=== PATIENT | male | born 1965 | race African-American/Black ===

== ENCOUNTER 2023-06-11 15:41 | Inpatient (IN) | payer OTHER ==
[2023-06-11 16:49] VITALS: BMI 29.1
[2023-06-11] MEDS ORDERED: MAG HYDROX/AL HYDROX/SIMETH 30 ML UNIT-DOSE CUP PO PRN (18:21)
[2023-06-11] MEDS ORDERED: BENZONATATE 200 MG CAPSULE PO PRN (18:21)
[2023-06-11] MEDS ORDERED: BISMUTH SUBSALICYLATE 524 MG/30 ML PO PRN (18:21)
[2023-06-11] MEDS ORDERED: IBUPROFEN 400 MG TABLET (FP) PO PRN (18:21)
[2023-06-11] MEDS ORDERED: ONDANSETRON *ODT* 4 MG TABLET SL PRN (18:21)
[2023-06-11] MEDS ORDERED: IBUPROFEN 600 MG TABLET (FP) PO PRN (18:21)
[2023-06-11] MEDS ORDERED: BENZOCAINE/MENTHOL (CHLORASEPTIC ) LOZENGE MM PRN (18:21)
[2023-06-11] MEDS ORDERED: LOPERAMIDE HCL 2 MG CAPSULE PO PRN (18:21)
[2023-06-11] MEDS ORDERED: POLYETHYLENE GLYCOL (HEALTHYLAX) 3350 17 GM PACKET PO PRN (18:21)
[2023-06-11] MEDS ORDERED: guaiFENesin 600 MG TABLET.ER (FP) PO PRN (18:21)
[2023-06-11] MEDS ORDERED: NALOXONE HCL 0.4 MG/ML VIAL IM PRN (18:21)
[2023-06-11] MEDS ORDERED: NALOXONE HCL (KLOXXADO) 8 MG SPRAY NS PRN (18:21)
[2023-06-11] MEDS ORDERED: DICYCLOMINE HCL 10 MG CAPSULE PO PRN (18:21)
[2023-06-11] MEDS ORDERED: ACETAMINOPHEN 325 MG TABLET (FP) PO PRN (18:21)
[2023-06-11] MEDS ORDERED: MAGNESIUM HYDROX 2400MG/30ML ORAL SUSPENSION 30 ML CUP PO PRN (18:21)
[2023-06-11] MEDS: THIAMINE HCL 100 MG TABLET (FP) PO SCH (22:31)
[2023-06-11] MEDS: METHOCARBAMOL 500 MG TABLET PO PRN (22:31)
[2023-06-11] MEDS: MELATONIN 5 MG TABLETS PO SCH (22:31)
[2023-06-11] MEDS: hydrOXYzine PAMOATE 25 MG CAPSULE (FP) PO PRN (22:31)
[2023-06-12] MEDS: NICOTINE 21 MG/24 HOURS TOPICAL PATCH TD SCH (09:35)
[2023-06-12] MEDS: hydrOXYzine PAMOATE 25 MG CAPSULE (FP) PO PRN (09:35)
[2023-06-12] MEDS: METHOCARBAMOL 500 MG TABLET PO PRN (09:35)
[2023-06-12] MEDS: PRENATAL VITAMINS W/ FOLIC ACID TABLET (FP) PO SCH (09:35)
[2023-06-12] MEDS ORDERED: NICOTINE 14 MG/24 HOURS TOPICAL PATCH TD SCH (10:00)
[2023-06-12] MEDS ORDERED: diazePAM 5 MG TABLET PO PRN (10:24)
[2023-06-12] MEDS ORDERED: cloNIDine HCL 0.1 MG TABLET PO PRN (10:26)
[2023-06-12] MEDS: metFORMIN HCL 500 MG TABLET (FP) PO SCH ×2 (10:50→17:19)
[2023-06-12] MEDS: ASPIRIN 81 MG CHEWABLE TABLETS PO SCH (10:50)
[2023-06-12] MEDS: diazePAM 5 MG TABLET PO SCH ×3 (10:50→22:03)
[2023-06-12 11:00] LABS: HEMATOCRIT 41.3 % (35.4-49); HEMOGLOBIN 13.2 GM/dL (11.7-16.9); MCH 27.5 pg (25.7-33.7); MEAN CELL VOLUME 85.8 fl (80-96); MEAN PLT VOLUME 7.4 fl (7.5-11.1); PLATELET COUNT 345 10^3/uL (134-434); RBC 4.81 M/mm3 (4.00-5.60); RDW 17.1 % (11.9-15.9)
[2023-06-12 11:10] LABS: POTASSIUM 4.2 mmol/L (3.5-5.1)
[2023-06-12 11:28] LABS: ALBUMIN 3.1 g/dl (3.4-5.0); BLOOD UREA NITROGEN 9.5 mg/dL (7-18); CREATININE 0.9 mg/dL (0.55-1.3)
[2023-06-12] MEDS: LIRAGLUTIDE 0.6 MG/0.1 ML PEN.INJCTR SQ SCH (11:29)
[2023-06-12 11:30] LABS: BILIRUBIN,TOTAL 0.3 mg/dL (0.2-1); TOT PROT 5.9 g/dl (6.4-8.2)
[2023-06-12 11:31] LABS: CALCIUM 8.8 mg/dL (8.5-10.1)
[2023-06-12] MEDS: CLOTRIMAZOLE 1% CREAM TP SCH (22:03)
[2023-06-12] MEDS: MIRTAZAPINE 15 MG TABLET (FP) PO SCH (22:04)
[2023-06-12] MEDS: ATORVASTATIN CA 40 MG TABLET (FP) PO SCH (22:04)
[2023-06-12] MEDS: ARIPiprazole 10 MG TABLET PO SCH (22:04)
[2023-06-12] MEDS: THIAMINE HCL 100 MG TABLET (FP) PO SCH (22:04)
[2023-06-12] MEDS: MELATONIN 5 MG TABLETS PO SCH (22:04)
[2023-06-13] MEDS: diazePAM 5 MG TABLET PO SCH ×4 (05:47→21:59)
[2023-06-13] MEDS: metFORMIN HCL 500 MG TABLET (FP) PO SCH ×2 (06:34→16:52)
[2023-06-13] MEDS ORDERED: methaDONE HCL 10 MG TABLET (FOR DETOX USE ONLY) PO ONE (10:00)
[2023-06-13] MEDS: NICOTINE 21 MG/24 HOURS TOPICAL PATCH TD SCH (10:17)
[2023-06-13] MEDS: PRENATAL VITAMINS W/ FOLIC ACID TABLET (FP) PO SCH (10:18)
[2023-06-13] MEDS: ASPIRIN 81 MG CHEWABLE TABLETS PO SCH (10:18)
[2023-06-13] MEDS: LIRAGLUTIDE 0.6 MG/0.1 ML PEN.INJCTR SQ SCH (10:19)
[2023-06-13] MEDS: CLOTRIMAZOLE 1% CREAM TP SCH ×2 (10:19→23:12)
[2023-06-13] MEDS: ATORVASTATIN CA 40 MG TABLET (FP) PO SCH (21:58)
[2023-06-13] MEDS: THIAMINE HCL 100 MG TABLET (FP) PO SCH (21:58)
[2023-06-13] MEDS: MELATONIN 5 MG TABLETS PO SCH (21:58)
[2023-06-13] MEDS: MIRTAZAPINE 15 MG TABLET (FP) PO SCH (21:58)
[2023-06-13] MEDS: METHOCARBAMOL 500 MG TABLET PO PRN (21:58)
[2023-06-13] MEDS: ARIPiprazole 10 MG TABLET PO SCH (21:58)
[2023-06-14] MEDS: metFORMIN HCL 500 MG TABLET (FP) PO SCH ×2 (06:01→17:26)
[2023-06-14] MEDS: diazePAM 5 MG TABLET PO SCH ×3 (06:01→23:22)
[2023-06-14 09:17] VITALS: RESP 18
[2023-06-14] MEDS: ASPIRIN 81 MG CHEWABLE TABLETS PO SCH (10:13)
[2023-06-14] MEDS: PRENATAL VITAMINS W/ FOLIC ACID TABLET (FP) PO SCH (10:13)
[2023-06-14] MEDS: CLOTRIMAZOLE 1% CREAM TP SCH ×2 (10:14→23:21)
[2023-06-14] MEDS: NICOTINE 21 MG/24 HOURS TOPICAL PATCH TD SCH (10:14)
[2023-06-14] MEDS: LIRAGLUTIDE 0.6 MG/0.1 ML PEN.INJCTR SQ SCH (10:16)
[2023-06-14] MEDS: ARIPiprazole 10 MG TABLET PO SCH (23:21)
[2023-06-14] MEDS: ATORVASTATIN CA 40 MG TABLET (FP) PO SCH (23:21)
[2023-06-14] MEDS: MIRTAZAPINE 15 MG TABLET (FP) PO SCH (23:22)
[2023-06-14] MEDS: THIAMINE HCL 100 MG TABLET (FP) PO SCH (23:22)
[2023-06-14] MEDS: MELATONIN 5 MG TABLETS PO SCH (23:22)
[2023-06-15] MEDS: diazePAM 5 MG TABLET PO SCH ×2 (05:43→17:18)
[2023-06-15] MEDS: metFORMIN HCL 500 MG TABLET (FP) PO SCH ×2 (06:53→17:18)
[2023-06-15] MEDS ORDERED: methaDONE HCL 10 MG TABLET (FOR DETOX USE ONLY) PO ONE (10:00)
[2023-06-15] MEDS: ASPIRIN 81 MG CHEWABLE TABLETS PO SCH (10:46)
[2023-06-15] MEDS: LIRAGLUTIDE 0.6 MG/0.1 ML PEN.INJCTR SQ SCH (10:47)
[2023-06-15] MEDS: NICOTINE 21 MG/24 HOURS TOPICAL PATCH TD SCH (10:47)
[2023-06-15] MEDS: PRENATAL VITAMINS W/ FOLIC ACID TABLET (FP) PO SCH (10:47)
[2023-06-15] MEDS: CLOTRIMAZOLE 1% CREAM TP SCH ×2 (10:47→22:10)
[2023-06-15] MEDS: MELATONIN 5 MG TABLETS PO SCH (22:08)
[2023-06-15] MEDS: MIRTAZAPINE 15 MG TABLET (FP) PO SCH (22:08)
[2023-06-15] MEDS: ARIPiprazole 10 MG TABLET PO SCH (22:08)
[2023-06-15] MEDS: ATORVASTATIN CA 40 MG TABLET (FP) PO SCH (22:08)
[2023-06-15] MEDS: THIAMINE HCL 100 MG TABLET (FP) PO SCH (22:09)
[2023-06-16] MEDS ORDERED: diazePAM 5 MG TABLET PO ONE (06:00)
[2023-06-16] MEDS: metFORMIN HCL 500 MG TABLET (FP) PO SCH (06:50)
[2023-06-16 08:49] VITALS: BP 112/72; PULSE 74; TEMP 97.4
== END 2023-06-16 09:10 | disposition home or self-care (01) | DRG 773 ==
LOC: YASAS 15:41 → Y3N 18:49
PROVIDERS: ADMIT Allergy & Immunology; ATTEND Surgery
PROC: HZ2ZZZZ Detoxification Services for Substance Abuse Treatment (ICD-10-PCS; principal; 2023-06-11)
DX: F11.23 Opioid dependence with withdrawal (principal); F10.230 Alcohol dependence with withdrawal, uncomplicated; F14.20 Cocaine dependence, uncomplicated; F19.259 Other psychoactive substance dependence with psychoactive substance-induced psychotic disorder, unspecified; F43.10 Post-traumatic stress disorder, unspecified; I10 Essential (primary) hypertension; E78.5 Hyperlipidemia, unspecified; E11.59 Type 2 diabetes mellitus with other circulatory complications; Z79.84 Long term (current) use of oral hypoglycemic drugs; Z86.11 Personal history of tuberculosis
CPT/HCPCS: 36415; 71046-TC-FY; 80053; 82962; 85027; 86780; 87635